=== PATIENT | female | born 1955 ===

== ENCOUNTER 2022-05-23 06:43 | Day surgery (SDC) | payer OTHER ==
[~2022-05-23] VITALS: Ht 165.1 cm; Wt 71.7 kg
== END 2022-05-23 14:30 | disposition home or self-care (01) ==
LOC: CIR.AMB 06:43
PROVIDERS: ATTEND Orthopaedic Surgery
DX: M75.122 Complete rotator cuff tear or rupture of left shoulder, not specified as traumatic (principal); M75.22 Bicipital tendinitis, left shoulder; Z88.6 Allergy status to analgesic agent; Z20.822 Contact with and (suspected) exposure to COVID-19; Z99.89 Dependence on other enabling machines and devices; G47.33 Obstructive sleep apnea (adult) (pediatric)